=== PATIENT | female | born 1950 | race Caucasian/White ===

== ENCOUNTER 2021-06-11 15:49 | Emergency (ER) | payer MEDICARE, OTHER ==
[~2021-06-11] VITALS: Ht 165.1 cm; Wt 108.9 kg
[2021-06-11] MEDS ORDERED: DIATRIZOATE MEGL/DIATRIZOA SOD 30 ML BTL PO ONE (16:30)
[2021-06-11 18:19] VITALS: BP 104/56
== END 2021-06-11 18:21 ==
LOC: ER 15:59
DX: Z43.1 Encounter for attention to gastrostomy (principal); L03.319 Cellulitis of trunk, unspecified; F03.90 Unspecified dementia, unspecified severity, without behavioral disturbance, psychotic disturbance, mood disturbance, and anxiety; G89.4 Chronic pain syndrome; F41.9 Anxiety disorder, unspecified
CPT/HCPCS: 74018; 99283